=== PATIENT | female | born 1960 | race Two or more races ===

== ENCOUNTER → 2024-08-23 | Outpatient (CLI) | payer OTHER, MEDICAID, SELFPAY ==
[2024-08-23 07:01] VITALS: BMI 28.2
--- NOTE | 2024-08-23 07:23 | EKG_ITS ---
[facility] Test Date: 2024-08-23 Pat Name: KAITLIN SRIVASTAVA Department: Room: - Gender: Female Early Childhood Education Coordinator: RT STUDENT : 1960 Requested By: Gibran Elizabeth Order Number: [id number] Reading MD: Gibran Elizabeth Measurements Intervals [place] Rate: 78 P: 58 MA: 165 QRS: 72 QRSD: 84 T: 64 QT: 379 QTc: 434 Interpretive Statements SINUS RHYTHM POSSIBLE LEFT ATRIAL ENLARGEMENT Compared to ECG 02/20/2024 14:00:24 ST (T wave) deviation no longer present /store/S0/[id number]/[id number]
--- NOTE | 2024-08-23 07:25 | SUR.PREOP ---
Pt stated had 2 episodes of complete body numbness, first June 2023 and December 2023. Pt stated on the last episode she lost consciousness, pt was referred to neurologist, neurologist after testing, told pt her problem was not nerve related so he referred her to label operator, pt had her first appt with label operator in [place] and stated has testing pending. Denies chest pain or SOB.
[2024-08-23 08:20] LABS: Collection Type, Urine Clean Catch
[2024-08-23 08:48] LABS: Basophils % (Auto) 0 % (0-2.5); Eosinophils # (Auto) 0.1 Thou/mm3 (0.0-0.5); Eosinophils % (Auto) 1 % (0-10); Hematocrit 40.3 % (36.0-46.0); Hemoglobin 13.7 g/dL (12.0-16.0); Immature Granulocytes % (Auto) 0 % (0-0); Immature Granulocytes Auto 0.03 Thou/mm3 (0.00-0.00); Lymphocytes # (Auto) 3.1 Thou/mm3 (1.0-4.8); Lymphocytes % (Auto) 30 % (10-50); Mean Corpuscular Hemoglobin 29.3 pg (25.0-35.0); Mean Corpuscular Volume 86 fL (80-100); Monocytes # (Auto) 0.8 Thou/mm3 (0.0-0.8); Monocytes % (Auto) 8 % (0-12); Neutrophils # (Auto) 6.3 Thou/mm3 (1.8-7.7); Neutrophils % (Auto) 61 % (37-80); Nucleated Red Blood Cell % 0 /100 WBC (0); Platelet Count 174 Thou/mm3 (140-440); RDW Standard Deviation 41.6 fL (36.4-46.3); Red Blood Count 4.67 Miln/mm3 (4.00-5.20); White Blood Count 10.4 Thou/mm3 (3.6-11.0)
[2024-08-23 08:56] LABS: Amorphous Crystals,Urine Present (Absent); Bacteria,Urine 2+; Bilirubin,Urine Negative (Negative); Blood,Urine Negative (Negative); Color,Urine Yellow (Lt Yel-Yel); Glucose, Urine Negative (Negative); Ketones,Urine Negative (Negative); Leukocyte Esterase,Urine Positive (Negative); Nitrite,Urine Positive (Negative); Protein,Urine Trace (Neg - Trace); RBC,Urine 6 /hpf (0-3); Specific Gravity,Urine 1.016 (1.001-1.035); Squamous Epithelial Cell,Urine 2 /hpf (0-5); Transitional Epi Cells,Urine < 1 /hpf (0-5); Urobilinogen,Urine Negative mg/dL (0.0-1.0); WBC,Urine 79 /hpf (0-5)
[2024-08-23 09:03] LABS: Clarity,Urine Hazy (Clear/Hazy)
[2024-08-23 09:06] LABS: Alanine Aminotransferase 45 U/L (10-49); Albumin, Serum 5.5 gm/dL (3.4-4.8); Albumin/Globulin Ratio 1.8 (1.2-2.2); Alkaline Phosphatase 87 U/L (46-116); Anion Gap 9 (7-16); Aspartate Amino Transferase 46 U/L (0-34); BUN/Creatinine Ratio 20 Ratio (12-20); Bilirubin,Total 0.5 mg/dL (0.3-1.2); Blood Urea Nitrogen 16 mg/dL (9-23); Calcium 10.6 mg/dL (8.3-10.6); Calcium (Corrected) 10.6 mg/dL (8.5-10.1); Carbon Dioxide 30.5 mMol/L (20.0-31.0); Chloride 99 mMol/L (98-107); Creatinine (Component) 0.8 mg/dL (0.6-1.3); Estimated Creatinine Clearance 63.4 mL/min (>60); Glucose 192 mg/dL (74-106); Osmolality,Calculated 281 (275-295); Potassium 3.9 mMol/L (3.4-5.1); Sodium 138 mMol/L (136-145); Total Protein 8.5 gm/dL (5.7-8.2); eGFR > 60 See Note
--- NOTE | 2024-08-23 12:08 | SUR.PREOP ---
Pt notified of surgery cancellation due to needing cardiac clearance.
--- NOTE | 2024-08-26 13:53 | ESPR_ITS ---
Documentation for date of: 08/26/24 BRIEF PRE-OP NOTE: This patient was scheduled for elective stress incontinence repair surgery with Dr. Pacheco on 08/25/24, however it was cancelled before Aug 25 due to need for cardiac clearance. Pre-op liaison informed me about this patient's hx. She reported pt having h/o total body numbness from neck down lasting few hours and then similar episode again later which included loss of consciousness. Then I see that last year on February 2024 she visited ED for chest pain. Liaison reported that she saw neurology, who referred her to cardiology, and that the patient has cardiac work up scheduled in October 2024. I discussed this with the surgeon pre-op and given that she has cardiology work up already scheduled, he agreed to cancel her surgery on and wants patient to follow up with him in office to reschedule. I informed the liaison to inform the patient about cancellation, to contact her assembler dielectric heater's office to confirm or move up her work-up, and contact the surgeon's office to reschedule. Gibran Elizabeth MD
== END | disposition home or self-care (01) ==
LOC: SLAB 09-04 06:57
PROVIDERS: Anesthesiology; PCP Family Medicine; Referring Provider Surgery; Visit Provider Surgery
DX: N39.3 Stress incontinence (female) (male) (principal)
CPT/HCPCS: 36415; 80053; 81001; 85025; 87077; 87086; 87186; 93005

== ENCOUNTER 2025-01-11 10:48 | Outpatient (RCR) | payer MEDICAID, OTHER, SELFPAY | END 2025-02-03 23:59 | disposition home or self-care (01) | LOC: CPTX 10:48 | PROVIDERS: PCP Psychiatry & Neurology Clinical Neurophysiology; Referring Provider Psychiatry & Neurology Clinical Neurophysiology; Visit Provider Psychiatry & Neurology Clinical Neurophysiology | DX: Z53.8 Procedure and treatment not carried out for other reasons (principal) ==

== ENCOUNTER 2025-01-23 17:00 | Observation (INO) | payer OTHER, MEDICAID, SELFPAY ==
[2025-01-22 07:33] VITALS: BMI 29.7
[2025-01-22 08:14] LABS: Collection Type, Urine Clean Catch
[2025-01-22 08:56] LABS: Basophils % (Auto) 0 % (0-2.5); Eosinophils # (Auto) 0.1 Thou/mm3 (0.0-0.5); Eosinophils % (Auto) 1 % (0-10); Hematocrit 40.3 % (36.0-46.0); Hemoglobin 13.6 g/dL (12.0-16.0); Immature Granulocytes % (Auto) 0 % (0-0); Immature Granulocytes Auto 0.03 Thou/mm3 (0.00-0.00); Lymphocytes # (Auto) 2.8 Thou/mm3 (1.0-4.8); Lymphocytes % (Auto) 33 % (10-50); Mean Corpuscular HGB Conc 33.7 g/dl (31.0-37.0); Mean Corpuscular Hemoglobin 30.4 pg (25.0-35.0); Mean Corpuscular Volume 90 fL (80-100); Monocytes # (Auto) 0.6 Thou/mm3 (0.0-0.8); Monocytes % (Auto) 7 % (0-12); Neutrophils # (Auto) 4.9 Thou/mm3 (1.8-7.7); Neutrophils % (Auto) 58 % (37-80); Nucleated Red Blood Cell % 0 /100 WBC (0); Platelet Count 173 Thou/mm3 (140-440); RDW Standard Deviation 42.1 fL (36.4-46.3); Red Blood Count 4.48 Miln/mm3 (4.00-5.20); White Blood Count 8.4 Thou/mm3 (3.6-11.0)
[2025-01-22 09:18] LABS: Alanine Aminotransferase 35 U/L (10-49); Albumin, Serum 4.6 gm/dL (3.4-4.8); Albumin/Globulin Ratio 1.5 (1.2-2.2); Alkaline Phosphatase 76 U/L (46-116); Anion Gap 8 (7-16); Aspartate Amino Transferase 29 U/L (0-34); BUN/Creatinine Ratio 15 Ratio (12-20); Bilirubin,Total 0.6 mg/dL (0.3-1.2); Blood Urea Nitrogen 12 mg/dL (9-23); Calcium 9.4 mg/dL (8.3-10.6); Calcium (Corrected) 9.4 mg/dL (8.5-10.1); Carbon Dioxide 31.8 mMol/L (20.0-31.0); Chloride 99 mMol/L (98-107); Creatinine (Component) 0.8 mg/dL (0.6-1.3); Estimated Creatinine Clearance 65.1 mL/min (>60); Glucose 192 mg/dL (74-106); Osmolality,Calculated 282 (275-295); Potassium 4.2 mMol/L (3.4-5.1); Sodium 139 mMol/L (136-145); Total Protein 7.6 gm/dL (5.7-8.2); eGFR > 60 See Note
[2025-01-22 09:29] LABS: Bacteria,Urine Rare; Bilirubin,Urine Negative (Negative); Blood,Urine Negative (Negative); Clarity,Urine Clear (Clear/Hazy); Color,Urine Yellow (Lt Yel-Yel); Glucose, Urine Negative (Negative); Ketones,Urine Negative (Negative); Leukocyte Esterase,Urine Negative (Negative); Nitrite,Urine Negative (Negative); PH,Urine 6.5 (5.0-7.0); Protein,Urine Negative (Neg - Trace); RBC,Urine 1 /hpf (0-3); Specific Gravity,Urine 1.015 (1.001-1.035); Squamous Epithelial Cell,Urine 6 /hpf (0-5); Urobilinogen,Urine Negative mg/dL (0.0-1.0); WBC,Urine 1 /hpf (0-5)
--- NOTE | 2025-01-22 15:27 | SUR.PREOP ---
requested cardiac records and waiting ...
--- NOTE | 2025-01-22 16:23 | ESHP_ITS ---
RE: SIL PEACOCK : 1960 DATE OF ADMISSION: 01/23/2025 HISTORY OF PRESENT ILLNESS: Sil Peacock is about a 64-year-old female with a history of gross urinary stress incontinence. She also has a grade 2 cystocele. The patient was seen in the office. She had a hysterectomy done in [place]. She had a neck operation, lower back operation, and cholecystectomy. She has a loss of urine on any kind of stress or sneezing, coughing, laughing, and also she has a grade 2 to 3 cystocele. She has a history of E. coli UTI sensitive to Augmentin. PAST MEDICAL HISTORY: There is a history of diabetes mellitus and history of hypertension. SOCIAL HISTORY: She has five kids. HOME MEDICATIONS: She is taking; 1. Gabapentin. 2. Janumet. 3. Ozempic. 4. Hydrochlorothiazide. 5. Lisinopril. ALLERGIES: SHE IS ALLERGIC TO MOTRIN. PHYSICAL EXAMINATION: HEENT: Normal. NECK: Supple. LUNGS: Clear. CARDIOVASCULAR: Heart sounds are normal. ABDOMEN: Soft without any organomegaly. No guarding. No rigidity. EXTREMITIES: Normal. PELVIC: Absent uterus with grade 2 to 3 cystocele. LABORATORY DATA: The patient had a cystoscope, which revealed low residual urine. No intravesical stones or tumors, gross urinary stress incontinence, positive Devin's test. The patient was seen by supervisor publications, and he has cleared her for the operation. PLAN: She is now scheduled to have bladder neck suspension, cystoscopy, Lynx vaginal sling procedure with anterior repair. Planned procedure, risks and complications have been discussed with the patient. The patient has understood them and agreed to proceed. DT: 16:06:28 TT: 16:21:00 Ref: [id number] - TID: [id number]
[2025-01-23] VITALS (18 sets, daily range): BP systolic 111–164; BP diastolic 60–77; PULSE 59–75; RESP 12–18; TEMP 36.2–36.6; O2SAT 94–100; BMI 28.6
--- NOTE | 2025-01-23 10:23 | SUR.PHASEI ---
0950: Pt received in [facility] via gurney. Report from Jatin JOSUE and Dr. rOtiz. Pt obtunded. Oral airway in place. Resp even, unlabored. VS stable. Dressing to suprapubic region dry, clean, intact. No swelling, discoloration. No vaginal bleeding. Rouse to gravity draining pale red urine. 1000: Pt awakening. Oral airway dc'd. Resp even, unlabored. 1013: Hospital bed brought in to [facility]. Pt transferred over to bed. No complaints voiced. VS stable. Dressing remains dry, clean, intact. No c/o pain.
[2025-01-23] MEDS: fentaNYL CIT INJ 50 mCg/ML AMP 2ML 25 MCG IV (10:33)
--- NOTE | 2025-01-23 10:42 | SUR.PHASEII ---
1033: Pt awake with c/o pain to abdomen. Rates pain level 5/10. VS stable. Resp even, unlabored. Pain medication given per order. 1042: Pt sleeping with no further c/o pain.
[2025-01-23] MEDS: RINGERS LACTATED 1000 ML 1,000 ML 100 ML IV ×2 (12:53→22:11)
[2025-01-23] MEDS: HYDROcodone/APAP 5/325 TABLET 1 TAB PO ×2 (14:26→20:53)
--- NOTE | 2025-01-23 14:34 | SUR.PHASEII ---
1140: Pt has been resting with no complaints voiced. 1240: Received room assignment. 1303: Pt has been sleeping. No complaints voiced. VS stable. Dressing remains dry, clean, intact. Report to 3rd floor. Pt transferred to room 361 in stable condition.
[2025-01-23] MEDS: MEPERIDINE INJ 50 MG/ML VIAL 75 MG IM (15:29)
[2025-01-23] MEDS: PROMETHAZINE INJ 25 MG/ML VIAL IM (15:30)
--- NOTE | 2025-01-23 19:56 | ESOP_ITS ---
RE: KAITLIN SRIVASTAVA : 1960 DATE OF OPERATION: 01/23/2025 PREOPERATIVE DIAGNOSES: Gross urinary stress incontinence, cystocele. POSTOPERATIVE DIAGNOSES: Gross urinary stress incontinence, cystocele. PROCEDURE PERFORMED: Bladder neck suspension, cystoscopy, urethrolysis with Lynx, and vaginal sling procedure. ANESTHESIA: General by Dr. Black. INDICATION: The patient is a 64-year-old female. The patient has gross urinary stress incontinence with cystocele. She was seen in the office. She had a previous hysterectomy done. She is diabetic. Cystoscopy was carried out, which revealed low residual urine, normal capacity bladder. No intravesical stones or tumors. Ureteral orifices are normal in position and appearance. There was gross urinary stress incontinence with positive Devin test. There were no uninhibited bladder contractions when bladder was filled. The patient was given treatment options. She has decided to have surgery. She is now scheduled to have above procedure. Planned procedure, risks, and complications have been discussed with the patient. The patient has understood them and agreed to proceed. DESCRIPTION OF PROCEDURE: After the patient was brought to the operating table under adequate general anesthesia given by Dr. Black and dorsal lithotomy position, parts were prepped and draped in the usual fashion. A 16-K[place] Rouse catheter was inserted into the bladder. Anterior vaginal wall submucosal injection was given for the local anesthetic and a small vertical incision was then made over the anterior vaginal mucosa between the mid urethra towards the bladder neck and the incision was about 0.5 cm. Dissection was then carried out on both sides underneath the mucosa for about 2 cm. Deep endopelvic fascia was found out and entered and urethrolysis was done on both sides. Retropubic space was defined. At this point, transverse 0.5 cm incisions were made on both sides in the suprapubic area about 3 cm from the midline and Lynx needles were passed from the suprapubic wound into the vaginal wound under finger control behind the pubic bone on both sides. At this point, cystoscopy was carried out. Rouse catheter from the bladder was removed. Cystoscope did not reveal evidence of any entrance of the needles through the bladder. The bladder appears to be intact. Scope was withdrawn. Rouse catheter was placed back into the bladder. A vaginal sling was attached to both needles and was pulled in place. Excess of the sling and the sleeve of the sling were removed. Excessive tension on the sling was avoided. Anterior vaginal wall incision was then closed with continuous sutures of 2-0 chromic catgut. Suprapubic wounds were closed with 3- 0 chromic catgut sutures. At this point, the patient was found to have a cystocele with rectocele. It was decided that could be taken care of later on probably by a registered radiation therapist in view of her cystocele and rectocele. Kerlix soaked in Betadine solution was used as vaginal packing. Sterile dressing was then applied. The patient was then transferred to the recovery room in a satisfactory condition having tolerated the entire procedure well. Sponge count and needle count at the end of the procedure were found to be correct. Estimated blood loss was approximately 25 mL. DT: 10:10:13 TT: 12:51:00 Ref: [id number] - TID: [id number]
[2025-01-23] MEDS: metFORMIN 500 MG TABLET 1000 MG PO (20:53)
[2025-01-23] MEDS: sitaGLIPtin PHOSPHATE 50 MG TABLET PO (20:53)
[2025-01-23] MEDS: INSULIN LISPRO (AdmeLOG) 1 UNIT/0.01 ML UNIT SC (22:06)
[2025-01-23] MEDS: GABAPENTIN 300 MG CAPSULE PO (22:06)
[2025-01-24] VITALS: BP 98/56; PULSE 72; RESP 18; TEMP 36.5; O2SAT 95
[2025-01-24] MEDS: HYDROcodone/APAP 5/325 TABLET 1 TAB PO (03:36)
[2025-01-24 03:53] VITALS: BP 114/62; PULSE 66; RESP 18; TEMP 36.2; O2SAT 94
[2025-01-24] MEDS: GABAPENTIN 300 MG CAPSULE PO (05:08)
[2025-01-24 05:59] LABS: Basophils % (Auto) 0 % (0-2.5); Eosinophils % (Auto) 0 % (0-10); Hematocrit 34.2 % (36.0-46.0); Hemoglobin 11.7 g/dL (12.0-16.0); Immature Granulocytes % (Auto) 0 % (0-0); Immature Granulocytes Auto 0.05 Thou/mm3 (0.00-0.00); Lymphocytes # (Auto) 2.7 Thou/mm3 (1.0-4.8); Lymphocytes % (Auto) 21 % (10-50); Mean Corpuscular HGB Conc 34.2 g/dl (31.0-37.0); Mean Corpuscular Hemoglobin 30.5 pg (25.0-35.0); Mean Corpuscular Volume 89 fL (80-100); Monocytes # (Auto) 1.2 Thou/mm3 (0.0-0.8); Monocytes % (Auto) 9 % (0-12); Neutrophils # (Auto) 8.8 Thou/mm3 (1.8-7.7); Neutrophils % (Auto) 69 % (37-80); Nucleated Red Blood Cell % 0 /100 WBC (0); Platelet Count 151 Thou/mm3 (140-440); RDW Standard Deviation 41.7 fL (36.4-46.3); Red Blood Count 3.84 Miln/mm3 (4.00-5.20); White Blood Count 12.7 Thou/mm3 (3.6-11.0)
[2025-01-24 06:23] LABS: Albumin, Serum 3.9 gm/dL (3.4-4.8); Anion Gap 11 (7-16); BUN/Creatinine Ratio 20 Ratio (12-20); Blood Urea Nitrogen 12 mg/dL (9-23); Calcium 8.7 mg/dL (8.3-10.6); Calcium (Corrected) 8.8 mg/dL (8.5-10.1); Carbon Dioxide 26.8 mMol/L (20.0-31.0); Chloride 102 mMol/L (98-107); Creatinine (Component) 0.6 mg/dL (0.6-1.3); Estimated Creatinine Clearance 88.5 mL/min (>60); Glucose 139 mg/dL (74-106); Osmolality,Calculated 281 (275-295); Phosphorous 4.2 mg/dL (2.4-5.1); Potassium 3.7 mMol/L (3.4-5.1); Sodium 140 mMol/L (136-145); eGFR > 60 See Note
[2025-01-24] MEDS: PROMETHAZINE INJ 25 MG/ML VIAL IM (07:48)
[2025-01-24] MEDS: INSULIN LISPRO (AdmeLOG) 1 UNIT/0.01 ML UNIT SC (07:48)
[2025-01-24] MEDS: MEPERIDINE INJ 50 MG/ML VIAL 75 MG IM (07:49)
[2025-01-24] MEDS: RINGERS LACTATED 1000 ML 1,000 ML 100 ML IV (07:55)
[2025-01-24 08:00] VITALS: BP 128/68; PULSE 71; RESP 18; TEMP 36.4; O2SAT 91
[2025-01-24 08:48] VITALS: BP 128/68; PULSE 71
[2025-01-24] MEDS: hydroCHLOROthiazide 12.5 MG CAPSULE 25 MG PO (08:48)
[2025-01-24] MEDS: sitaGLIPtin PHOSPHATE 50 MG TABLET PO (08:48)
[2025-01-24] MEDS: METOPROLOL SUCCINATE XL 25 MG TABCR PO (08:48)
[2025-01-24] MEDS: metFORMIN 500 MG TABLET 1000 MG PO (08:48)
[2025-01-24] MEDS: ROSUVASTATIN 5 MG TABLET (NON-FORM) 40 MG PO (08:49)
[2025-01-24] MEDS: LEVOFLOXACIN/D5W 500 MG IVPB 500 MG/100 ML BAG 100 MG IV (08:49)
[2025-01-24 12:00] VITALS: BP 134/73; PULSE 65; RESP 18; TEMP 36.1; O2SAT 96
[2025-01-24] MEDS: bisacodyL 5 MG TABEC 10 MG PO (12:54)
== END 2025-01-24 13:05 | disposition home or self-care (01) ==
LOC: S3NX 17:05 → S2EX 01-24 06:48 → S3NX 01-24 06:49
PROVIDERS: Anesthesiology; Admitting Provider Surgery; PCP Family Medicine; Referring Provider Surgery; Visit Provider Surgery
PROC: 0TJB8ZZ Inspection of Bladder, Via Natural or Artificial Opening Endoscopic (ICD-10-PCS; CPT 57288; principal; 2025-01-23 08:00)
DX: N39.3 Stress incontinence (female) (male) (principal); N81.10 Cystocele, unspecified; Z87.440 Personal history of urinary (tract) infections; I10 Essential (primary) hypertension; E11.9 Type 2 diabetes mellitus without complications; Z90.49 Acquired absence of other specified parts of digestive tract; Z90.710 Acquired absence of both cervix and uterus; Z86.19 Personal history of other infectious and parasitic diseases
CPT/HCPCS: 57288; 36415; 80053; 80069; 81001; 85025; 87086; 96360; 96361; 96372; A4217; A4649; C1771; G0378; J0131; J1100; J1815; J1956; J2175; J2250; J2405; J2550; J2704; J3010; J3490; J7120; A9270

== ENCOUNTER → 2025-02-19 | Outpatient (CLI) | payer OTHER, MEDICAID, SELFPAY ==
--- NOTE | 2025-02-19 15:13 | XR_ITS ---
Examination: Carotid arterial duplex scan, ultrasound. Date and time of exam: February 19, 2025 1519 hours INDICATIONS: Left carotid bruit on auscultation this month Technique: Multiple sonographic images have been obtained of the carotid arteries and vertebral arteries, B-mode/grayscale imaging and Doppler spectral analysis and color flow Peak systolic and diastolic velocities have been recorded. Systolic diastolic ratios have been calculated. Findings: Right peak systolic velocities: Distal internal carotid artery peak systolic velocity is 1.2 M/sec Proximal internal carotid artery peak systolic velocity is 0.9 M/sec Carotid bifurcation peak systolic velocity is 1.1 M/sec External carotid artery peak systolic velocity is 1.7 M/sec Vertebral artery flow is antegrade. Left peak systolic velocities: Distal internal carotid artery peak systolic velocity is 0.7 M/sec Proximal internal carotid artery peak systolic velocity is 0.9 M/sec Carotid bifurcation peak systolic velocity is 1.1 M/sec External carotid artery peak systolic velocity is 1.3 M/sec Vertebral artery flow is antegrade Doppler waveform analysis demonstrates bilateral spectral broadening Impression: Right internal carotid artery demonstrates 30-50% stenosis. Left internal carotid artery demonstrates 10-30% stenosis.
== END | disposition home or self-care (01) ==
PROVIDERS: PCP Family Medicine; Referring Provider Internal Medicine; Visit Provider Internal Medicine
DX: I65.23 Occlusion and stenosis of bilateral carotid arteries (principal)
CPT/HCPCS: 93880

== ENCOUNTER → 2025-03-30 | Outpatient (CLI) | payer OTHER, MEDICAID, SELFPAY ==
--- NOTE | 2025-03-30 10:00 | XR_ITS ---
Examination: Retroperitoneal ultrasound, complete Technique: Multiple high resolution grayscale images of the retroperitoneum obtained, including kidneys and bladder. Exam date and time:March 30, 2025 0938 hours INDICATIONS: Urinary tract infections 2 months FINDINGS: Right kidney 12.1 cm renal cortex 1.2 cm Left kidney 10.0 cm cortex 1.9 cm Minor renal scar formation No bladder mass or bladder calculi Bladder prevoid volume 333 cc IMPRESSION: No hydronephrosis or renal calculi
== END | disposition home or self-care (01) ==
PROVIDERS: PCP Family Medicine; Referring Provider Surgery; Visit Provider Surgery
DX: N39.0 Urinary tract infection, site not specified (principal)
CPT/HCPCS: 76770

== ENCOUNTER 2025-04-21 10:14 | Emergency (ER) | payer OTHER, MEDICAID, SELFPAY ==
[2025-04-21] VITALS (7 sets, daily range): BP systolic 105–166; BP diastolic 56–82; PULSE 5–88; RESP 16; TEMP 36.8; O2SAT 96–99; BMI 29.6
--- NOTE | 2025-04-21 10:22 | EKG_ITS ---
[facility] Test Date: 2025-04-21 Pat Name: KAITLIN SRIVASTAVA Department: Room: - Gender: Female Mobility Developer: : 1960 Requested By: Blanche Butler Order Number: [id number] Reading MD: Blanche Butler Measurements Intervals [place] Rate: 71 P: 44 HI: 156 QRS: 12 QRSD: 95 T: 24 QT: 414 QTc: 450 Interpretive Statements SINUS RHYTHM WITH OCCASIONAL VENTRICULAR PREMATURE COMPLEXES Compared to ECG 08/23/2024 08:08:46 Ventricular premature complex(es) now present /store/S0/[id number]/ecg/[id number].pdf
--- NOTE | 2025-04-21 11:03 | XR_ITS ---
Patient: PA chest single view Technique: Upright PA chest single view Date and time: April 21, 2025, 1125 hrs. Indications: Dizziness several days. Findings: Normal heart size. No pneumonia or pulmonary edema. Moderate osteopenia. Impression: No active disease.
--- NOTE | 2025-04-21 11:05 | EDRME_ITS ---
Rapid Medical Screening Exam RME Arrival date/time: 04/21/25 10:14 This is a 64-year-old female that comes into the emergency room with complaints of chest pain, palpitations, shortness of breath. Patient states that she recently started Levaquin approximately 3 days ago for a UTI. Patient reports that she had bladder surgery to lift her bladder in January 2025. Patient states since then she has had a constant UTI. Patient has tried several different antibiotics and despite this has had a continuous UTI. Patient reports that when she started the Levaquin she started having palpitations. Patient denies any other complaints. I have greeted and performed a focused initial assessment of this patient. Init ial appropriate labs ordered at this time. A comprehensive ED assessment and evaluation of the patient and analysis of all test and completion of medical decision making process will be conducted by additional ED provider. Chief Complaint: Arrhythmia/Palpitations Time Seen by Provider: 04/21/25 10:33 Vital signs: Vital Signs Temperature 98.3 F 04/21/25 10:36 Pulse Rate 66 04/21/25 10:36 Respiratory Rate 16 04/21/25 10:36 Blood Pressure 128/75 04/21/25 10:36 Pulse Oximetry (%) 97 04/21/25 10:36 Oxygen Delivery Method Room Air 04/21/25 10:36
[2025-04-21 11:47] LABS: Basophils # (Auto) 0.0 Thou/mm3 (0.0-0.2); Basophils % (Auto) 0 % (0-2.5); Eosinophils # (Auto) 0.0 Thou/mm3 (0.0-0.5); Eosinophils % (Auto) 0 % (0-10); Hematocrit 43.6 % (36.0-46.0); Hemoglobin 14.6 g/dL (12.0-16.0); Immature Granulocytes Auto 0.03 Thou/mm3 (0.00-0.00); Lymphocytes # (Auto) 2.6 Thou/mm3 (1.0-4.8); Lymphocytes % (Auto) 27 % (10-50); Mean Corpuscular HGB Conc 33.5 g/dl (31.0-37.0); Mean Corpuscular Hemoglobin 29.6 pg (25.0-35.0); Mean Corpuscular Volume 88 fL (80-100); Monocytes # (Auto) 0.6 Thou/mm3 (0.0-0.8); Monocytes % (Auto) 6 % (0-12); Neutrophils # (Auto) 6.5 Thou/mm3 (1.8-7.7); Neutrophils % (Auto) 66 % (37-80); Nucleated Red Blood Cell # 0.00 Thou/mm3 (0.00-0.00); Nucleated Red Blood Cell % 0 /100 WBC (0); Platelet Count 191 Thou/mm3 (140-440); RDW Standard Deviation 41.1 fL (36.4-46.3); Red Blood Count 4.94 Miln/mm3 (4.00-5.20); White Blood Count 9.9 Thou/mm3 (3.6-11.0)
[2025-04-21 12:14] LABS: B-Type Natriuretic Peptide < 20 pg/mL (0-100)
[2025-04-21 12:15] LABS: Alanine Aminotransferase 41 U/L (10-49); Albumin, Serum 4.8 gm/dL (3.4-4.8); Albumin/Globulin Ratio 1.5 (1.2-2.2); Alkaline Phosphatase 89 U/L (46-116); Anion Gap 9 (7-16); Aspartate Amino Transferase 36 U/L (0-34); BUN/Creatinine Ratio 21 Ratio (12-20); Bilirubin,Total 0.5 mg/dL (0.3-1.2); Blood Urea Nitrogen 17 mg/dL (9-23); Calcium 10.6 mg/dL (8.3-10.6); Calcium (Corrected) 10.6 mg/dL (8.5-10.1); Carbon Dioxide 28.6 mMol/L (20.0-31.0); Chloride 101 mMol/L (98-107); Creatinine (Component) 0.8 mg/dL (0.6-1.3); Estimated Creatinine Clearance 64.9 mL/min (>60); Globulin 3.1 gm/dL (2.3-3.5); Glucose 168 mg/dL (74-106); Osmolality,Calculated 283 (275-295); Potassium 4.4 mMol/L (3.4-5.1); Sodium 139 mMol/L (136-145); Total Protein 7.9 gm/dL (5.7-8.2); Troponin I < 0.002 ng/mL (0.0-0.045); eGFR > 60 See Note
--- NOTE | 2025-04-21 13:24 | PD.EDARRY ---
ED Arrhythmia Palp. RME/HPI General Chief Complaint: Arrhythmia/Palpitations Stated Complaint: Palpitations X 4 days, dizzy Time Seen by Provider: 04/21/25 10:33 Arrival date/time: 04/21/25 10:14 RME / HPI RME / HPI narrative: 04/21/25 10:14 This is a 64-year-old female that comes into the emergency room with complaints of chest pain, palpitations, shortness of breath. Patient states that she recently started Levaquin approximately 3 days ago for a UTI. Patient reports that she had bladder surgery to lift her bladder in January 2025. Patient states since then she has had a constant UTI. Patient has tried several different antibiotics and despite this has had a continuous UTI. Patient reports that when she started the Levaquin she started having palpitations. Patient denies any other complaints. I have greeted and performed a focused initial assessment of this patient. Initial appropriate labs ordered at this time. A comprehensive ED assessment and evaluation of the patient and analysis of all test and completion of medical decision making process will be conducted by additional ED provider. DR. MANNING MAIN ED EVALUATION: 64-year-old female presents to the Emergency Department accompanied by her daughter with palpitations that began on , approximately 4 days ago, after starting a new course of antibiotics for an UTI. Symptoms are associated with nausea and dizziness. She has a history of frequent UTIs, reportedly occurring weekly, and underwent a bladder lift procedure in January 2025 to help prevent recurrent infections. She is also using estrogen therapy. Patient has a history of chronic constipation. No diarrhea. Related Data Home Medications ?Medication ?Instructions ?Recorded ?Confirmed gabapentin 300 mg capsule 300 mg PO TID 08/23/24 01/22/25 metoprolol succinate 25 mg capsule 25 mg PO QDAY 08/23/24 01/22/25 sprinkle, ext. release 24 hr rosuvastatin 40 mg tablet 40 mg PO QDAY 08/23/24 01/22/25 semaglutide 1 mg/dose (4 mg/3 mL) 1 mg subcut QWEEK 08/23/24 01/22/25 subcutaneous pen injector (Ozempic) sitagliptin phosphate 50 1 tab PO BID 08/23/24 01/22/25 mg-metformin 1,000 mg tablet (Janumet) hydrochlorothiazide 25 mg tablet 25 mg PO DAILY 01/22/25 01/22/25 Previous Rx's ?Medication ?Instructions ?Recorded hydrocodone 5 mg-acetaminophen 325 1 tab PO Q6H PRN pain #30 tabs 01/23/25 mg tablet Allergies Allergy/AdvReac Type Severity Reaction Status Date / Time ibuprofen (From Motrin) Allergy Severe chest pain Verified 04/21/25 10:19 Review of Systems Review of Systems Systems Reviewed: All systems reviewed, normal except as documented Past Medical History Past Medical History NEUROLOGIC: Positive Migraine CARDIAC: Positive Cardiac Disorders, Hypercholesterolemia and Hypertension RESPIRATORY: Positive Sleep Apnea GENITOURINARY: Positive Genitourinary Disorders (urinary incontinence, just finished antibiotics for UTI) REPRODUCTIVE: Positive Previous Pregnancies MUSCULOSKELETAL: Positive Musculoskeletal Disorders, Degenerative Disk Disease and Fractures (Neck C 1-4 accident 2001, has a plate) ENDOCRINE: Positive Endocrine Disorders and Diabetes Mellitus Type 2 OTHER HISTORY: Positive Hospitalization, Shingles, Chicken Pox, Measles, Mumps and Cancer Family History FAMILY HISTORY: Positive Family Cardiac Disorders, Family Cancer and Family Surgery Surgical History SURGICAL: Positive Abdominal Surgery and Hysterectomy Social History SMOKING STATUS: Never smoker SUBSTANCE USE: does not use ALCOHOL: Never ED Exam Narrative Physical exam: GENERAL APPEARANCE: alert and oriented x 4, well-developed, well-nourished, no acute distress VITALS: All vitals were reviewed and the pulse ox is 97% on room air, which is normal according to my interpretation. HEENT: Normocephalic, atraumatic; pupils equal, round, reactive to light; EOMI; mucous membranes pink, moist; oropharynx clear NECK: Supple LUNGS: CTABL; no wheezes, no rales, no rhonchi HEART: Regular rate, regular rhythm; normal S1, S2; no murmurs ABDOMEN: non distended; normal BS; soft, no tenderness, no guarding, no rebound; no masses, no organomegaly, no hernia BACK: no CVA tenderness EXTREMITIES: atraumatic; no edema NEUROLOGIC: awake; alert and oriented x4; cranial nerves II-XII grossly intact; no focal sensory or motor deficits PSYCHIATRIC: appropriate mood and affect SKIN: warm, dry, normal color; no rashes Course Quality Measures none Orders Category Date Time Status EKG (ED ONLY) *Do not use* NOW Care 04/21/25 10:23 Completed EKG (ED Only) Stat Exams 04/21/25 10:22 Draft XR chest 1V Stat Exams 04/21/25 11:03 Completed BNP [B-Type Natriuretic Peptide] Stat Lab 04/21/25 11:37 Completed CBC Stat Lab 04/21/25 11:37 Completed Comprehensive Metabolic Panel Stat Lab 04/21/25 11:37 Completed Troponin I Stat Lab 04/21/25 11:37 Completed Urinalysis, C/S if Indicated Stat Lab 04/21/25 11:04 Ordered Reevaluation(s) Reevaluation #1: site monitor was ordered for to monitor for arrhythmia. Monitor shows rate and rhythm sinus rhythm with occasional PVC's. Time: 13:46 Vital Signs Vital signs: Vital Signs Temperature 98.3 F 04/21/25 10:36 Pulse Rate 66 04/21/25 10:36 Respiratory Rate 16 04/21/25 10:36 Blood Pressure 128/75 04/21/25 10:36 Pulse Oximetry (%) 97 04/21/25 10:36 Oxygen Delivery Method Room Air 04/21/25 10:36 Arrhythmia/Palpitations MDM Narrative MDM Narrative:: I, Juliette Mancera am scribing for and in the presence of Dr. Manning. Patient data External records reviewed:: [facility] previous records Clinical information provided by:: patient and family (daughter) Social determinants that could affect healthcare access:: none Patient has the following chronic illnesses:: She has a history of frequent UTIs, reportedly occurring weekly, and underwent a bladder lift procedure in January 2025 to help prevent recurrent infections. She is also using estrogen therapy. How is presenting disease/condition affected by chronic disease/condition?: exacerbated by Evaluation data The following diagnostics were reviewed and interpreted by me:: lab results, radiology exam(s) and EKG tracing(s) (My interpretation: EKG performed at 1039 hours, sinus rhythm, rate 71, occasional PVCs, Q wave in lead 3) Lab and/or radiology exams considered but not ordered:: none Interpretation Summary: Procedure(s): XR chest 1V Accession Number(s): [id number] cc: Shiva Harrison MD; Kristopher Garduno MD; Flory mSith NP~ Patient: PA chest single view Technique: Upright PA chest single view Date and time: April 21, 2025, 1125 hrs. Indications: Dizziness several days. Findings: Normal heart size. No pneumonia or pulmonary edema. Moderate osteopenia. Impression: No active disease. Dictated By: Kristopher Garduno MD Medications / Prescriptions Medications or Prescriptions considered but not ordered:: none Medication administrations:: see above if any Consultations Consultation(s) initiated? (list below): No Diagnosis Differential diagnosis arrhythmia/palpitations: other (Medication-induced palpitations, UTI-related systemic symptoms, and orthostatic hypotension.) Most likely diagnosis given after review of the tests above:: Palpitations PVCs Dizziness Admission Indicated Admission indicated?: not indicated Admission Request Was there a request for admission?: No Disposition Plan Disposition Plan: Discharge Discharge Attestation Discharge Attestation: The patient and all family members were given an opportunity to ask questions and understood the discharge instructions. Discharge instructions specifically effects, indications for sooner follow up or return to the emergency department, and the expected course of current diagnosis. Patient condition: Stable Discharge Plan Plan Patient Disposition: HOME (Self Care) Prescriptions/Referrals Prescriptions/Med Rec: No Action hydrochlorothiazide 25 mg tablet 25 mg PO DAILY Patient Comments: TAKE 1 TABLET BY MOUTH EVERY DAY IN THE MORNING FOR 90 DAYS hydrocodone-acetaminophen 5-325 mg tablet 1 tab PO Q6H MDD 4 PRN (Reason: pain) Qty: 30 0RF gabapentin 300 mg Capsule 300 mg PO TID rosuvastatin 40 mg Tablet 40 mg PO QDAY Janumet 50-1,000 mg Tablet 1 tab PO BID metoprolol succinate 25 mg Capsule,Sprinkle,Er 24hr 25 mg PO QDAY Ozempic 1 mg/dose (4 mg/3 mL) pen injector 1 mg SUBCUT QWEEK Referrals: Shiva Harrison MD [Primary Care Provider] - In 1 week Problem List Clinical Impression: Palpitations, Premature ventricular contractions (PVCs) (VPCs), Dizziness Patient/Caregiver Discharge Instructions Education Materials: PVCs, Premature Ventricular Contract Tx Additional Instructions: Your urinary tract infection has been treated. You may discontinue levofloxacin. Print Language: Slovak Stand Alone Forms: Emilia Award Info., Patient Portal Info Letter
[2025-04-21 13:38] LABS: Collection Type, Urine Voided
[2025-04-21 13:47] LABS: Bilirubin,Urine Negative (Negative); Blood,Urine Negative (Negative); Clarity,Urine Clear (Clear/Hazy); Color,Urine Yellow (Lt Yel-Yel); Culture Indicated,Urine Not Indicated; Glucose, Urine Negative (Negative); Ketones,Urine Negative (Negative); Leukocyte Esterase,Urine Negative (Negative); Nitrite,Urine Negative (Negative); PH,Urine 6.0 (5.0-7.0); Protein,Urine Negative (Neg - Trace); RBC,Urine 4 /hpf (0-3); Specific Gravity,Urine 1.025 (1.001-1.035); Squamous Epithelial Cell,Urine 8 /hpf (0-5); Urobilinogen,Urine Negative mg/dL (0.0-1.0); WBC,Urine 1 /hpf (0-5)
[2025-04-21 15:19] LABS: Magnesium 1.7 mg/dL (1.6-2.6)
[2025-04-21] MEDS: MAGNESIUM OXIDE 400 MG TABLET PO (16:20)
== END 2025-04-21 16:56 | disposition home or self-care (01) ==
PROVIDERS: Nurse Practitioner Family; Emergency Provider Emergency Medicine; PCP Family Medicine
DX: I49.3 Ventricular premature depolarization (principal); R42 Dizziness and giddiness
CPT/HCPCS: 36415; 71045; 80053; 81001; 83735; 83880; 84484; 85025; 93005; 99283; A9270

== ENCOUNTER 2025-05-28 08:51 | Outpatient (AMB) | payer OTHER, MEDICAID, SELFPAY ==
[2025-05-28 09:08] VITALS: BP 99/59; PULSE 64; RESP 19; TEMP 36.8; O2SAT 98; BMI 29.7
--- NOTE | 2025-05-28 09:08 | AMB.GYNCLNOT ---
Vital Signs 05/28/25 09:08 Height 1.57 m Height Method Stated Weight 73.595 kg Weight Measurement Method Standing Scale BMI 29.7 BP 99/59 L Blood Pressure Source Automatic Cuff Blood Pressure Location Right Upper Arm Position Sitting Respiration 19 Pulse 64 Pulse Source Monitor Temp 98.2 F Temp Source Temporal Artery Scan Pulse Oximetry (%) 98 Oxygen Delivery Method Room Air Allergies/Home Meds Allergies & Medications Allergies ibuprofen (From Motrin) Allergy (Severe, Verified 04/21/25 10:19) chest pain Intake Visit Data Collection New Patient or Established: Established Patient (seen at [facility] within 3 years) Reason for Visit:: REFERRAL RECURRENT UTI [employer] Staff Officer Required: No [employer] Staff Officer's name/title: PTS DAUGHTER Do You Feel Safe at Home: Yes Authorities Contacted: N/A PCP or OBGYN visit in last 3 months: Yes Hx Now: No Are you currently on any form of Control: No Pain Present Currently: No Smoking Status Smoking Status: Never smoker [employer]: Past Medical History Past Medical History: No Hx Neurological Disorders, Yes Hx Cardiac Disorders, Yes Hx Hypertension, Yes Hx Cancer, No Hx Blood Disorders, No Hx Gastrointestinal Disorders, No Hx Renal Disease, No Hx Diabetes Mellitus Type 1, Yes Hx Diabetes Mellitus Type 2 and Yes Hx Hysterectomy Questionnaires Social History Living Situation History Housing: House Tobacco History Smoking Status: Never smoker Alcohol History Alcohol Intake: Never Domestic Abuse History Do You Feel Safe at Home: Yes History of Present Illness HPI Narrative Chief Complaint Recurrent urinary tract infections, difficulty urinating, constipation Sil Peacock, a patient with a history of hysterectomy in 2004, presents for follow-up after recent bladder surgery performed by Dr. Pacheco on November 25 of this year. The patient reports ongoing urinary and bowel issues despite the recent surgical intervention. The patient's primary concerns are recurrent urinary tract infections (UTIs), difficulty urinating, and constipation. She recently completed a course of antibiotics prescribed by Dr. Pacheco about 3 weeks ago for a UTI, which appears to be clearing. Despite the bladder surgery, which corrected the sphincter, the patient continues to experience difficulty with urination. She has to sit in a specific position to facilitate urination and bowel movements. The patient suffers from constipation, which may be related to the altered anatomy of her rectum. Dr. Alvarado has noted that while the bladder sphincter was corrected during the recent surgery, the patient has significant bladder prolapse. 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 The patient denies feeling any protrusion when wiping after using the bathroom. The patient's surgical history is significant for a hysterectomy in 2004, with removal of the uterus and one ovary. The recent bladder surgery by Dr. Pacheco on November 25 of this year attempted to address her urinary issues, but has not fully resolved her symptoms. Medical History: - Recurrent urinary tract infections (UTIs) - Constipation - Bladder prolapse - Cystocele-rectocele - Vaginal vault prolapse - Hysterectomy with one ovary remaining in 2004 Surgical History: - Bladder surgery by Dr. Pacheco on November 25, 2024 to correct sphincter - Hysterectomy with removal of uterus and one ovary in 2004 Social History: - Living Situation: Patient requires assistance with urination and defecation, suggesting potential need for caregiving support Exam Narrative Physical exam: Noted in vault prolapse with cystorectocele General General Appearance: alert, in no apparent distress and healthy appearing Head Head exam: atraumatic Neck Neck exam: Present normal inspection and trachea midline Chest Chest inspection: Present normal inspection and symmetric chest wall rise External exam: Present normal external exam; Absent tenderness Neuro Neurological exam: Present oriented X3 Psych Psychiatric exam: Present normal affect and normal mood Assessment & Plan Diagnosis / Problem List (1) Vaginal vault prolapse: Status: Acute Plan Pelvic organ prolapse (cystocele-rectocele with vaginal vault prolapse) Assessment: Patient has a history of hysterectomy in 2004 with one ovary remaining. She underwent a recent surgery on November 25 of [address] Dr[address] Pacheco to correct bladder issues. However, she continues to experience difficulty urinating and defecating. Examination reveals both a cystocele and rectocele. The absence of the uterus has led to a vaginal vault prolapse, which is causing the rectum and bladder to descend. This condition is contributing to her urinary and defecation difficulties, as well as recurrent UTIs. Plan: - Refer patient to Dr. Rainey in [place] (or Dr. Richey in [place], depending on insurance coverage) for sacral colpopexy - Advise long-term use of fiber supplement (e.g., Metamucil or Benefiber) to ease bowel movements - Recommend increased water intake to help with UTI prevention and bowel movements - Suggest magnesium supplementation to aid in bowel movements Recurrent urinary tract infections (UTIs) Assessment: Patient reports frequent UTIs. She was treated with antibiotics by Dr. Pacheco approximately 3 weeks ago, which appears to be clearing the most recent infection. The recurrent UTIs are likely related to her pelvic organ prolapse, which is affecting bladder function and potentially causing incomplete bladder emptying. Plan: - Continue current antibiotic course as prescribed by Dr. Alvarado - Recommend increased water intake to help prevent future UTIs - Educate patient on the relationship between pelvic organ prolapse and recurrent UTIs - Advise that sacral colpopexy may help reduce the frequency of UTIs by correcting the anatomical issues Advanced Care Planning Advance care planning discussed with:: patient
== END 2025-05-28 09:52 | disposition home or self-care (01) ==
LOC: HODSOBC 08:51
PROVIDERS: PCP Family Medicine; Referring Provider Family Medicine; Supervising Provider Obstetrics & Gynecology; Visit Provider Obstetrics & Gynecology
DX: N81.10 Cystocele, unspecified (principal); N81.6 Rectocele; I10 Essential (primary) hypertension; Z87.440 Personal history of urinary (tract) infections; Z90.710 Acquired absence of both cervix and uterus
CPT/HCPCS: 99213; G0463